=== PATIENT | female | born 1985 | race Caucasian/White ===

== ENCOUNTER 2019-10-28 10:21 | Day surgery (SDC) | payer OTHER, SELFPAY ==
[2019-10-24 11:51] LABS: BASOPHILS % (AUTO) 0.7 % (0.0-2.0); EOSINOPHILS # (AUTO) 0.2 K/uL (0.0-0.4); EOSINOPHILS % (AUTO) 3.4 % (0.0-4.0); HEMATOCRIT 40.6 % (36-48); HEMOGLOBIN 13.4 g/dL (12.0-16.0); LYMPHOCYTES # (AUTO) 2.1 K/uL (1.0-5.5); LYMPHOCYTES % (AUTO) 33.1 % (20.5-51.5); MEAN CORPUSCULAR HEMOGLOBIN 30 pg (27-31); MEAN CORPUSCULAR HGB CONC 33 % (32-36); MEAN CORPUSCULAR VOLUME 90 fL (79.0-98.0); MONOCYTES # (AUTO) 0.4 K/uL (0.0-1.0); MONOCYTES % (AUTO) 6.8 % (1.7-9.3); NEUTROPHILS # (AUTO) 3.6 K/uL (1.8-7.7); PLATELET COUNT (AUTO) 351 K/uL (130-430); RED BLOOD CELL COUNT(AUTO) 4.54 MIL/uL (4.2-6.2); RED CELL DISTRIBUTION WIDTH 12.6 % (9.0-15.0); WHITE BLOOD COUNT (AUTO) 6.4 K/uL (4.8-10.8)
[~2019-10-28] VITALS: Ht 160 cm; Wt 70.3 kg
[~2019-10-28 10:21] MED LIST: CEFAZOLIN SOD 2 GM in D5W 50 ML IV ONE
[2019-10-28] MEDS ORDERED: PROPOFOL 200MG/ 20ML VIAL (DIPRIVAN) IV ONE (12:15)
[2019-10-28] MEDS ORDERED: ONDANSETRON HCL 4 MG/2 ML VIAL IVP ONE (12:15)
[2019-10-28] MEDS ORDERED: SEVOFLURANE 15 MIN GAS INH ONE (12:15)
[2019-10-28] MEDS ORDERED: KETOROLAC TROMETHAMINE 30 MG VIAL IVP ONE (12:15)
[2019-10-28] MEDS ORDERED: MIDAZOLAM HCL 5 MG/5 ML VIAL IVP ONE (12:15)
[2019-10-28] MEDS ORDERED: NS IRRIG SOLN 1000 ML IR ONE (12:15)
[2019-10-28] MEDS ORDERED: MORPHINE SULFATE 10MG/10ML PF AMP EP ONE (12:15)
[2019-10-28] MEDS ORDERED: LR 1,000 ML IV.SOLN IV ONE (12:15)
[2019-10-28] MEDS ORDERED: NS IRRIG SOLN 5000 ML IR ONE (12:15)
[2019-10-28] MEDS ORDERED: fentaNYL CITRATE 250 MCG/5 ML AMP IV ONE (12:15)
[2019-10-28] MEDS ORDERED: BUPIVACAINE /EPINEPHRINE/PF 0.5% 30 ML VIAL INJ ONE (12:15)
[2019-10-28] MEDS ORDERED: DEXAMETHASONE SOD PHOSPHATE 4 MG/ML VIAL IVP ONE (12:15)
[2019-10-28] MEDS ORDERED: ONDANSETRON HCL 4 MG/2 ML VIAL IVP PRN (13:00)
[2019-10-28] MEDS ORDERED: MIDAZOLAM HCL 2 MG/2 ML VIAL (VERSED) IVP PRN (13:00)
[2019-10-28] MEDS ORDERED: HYDROmorphone 1 MG INJ. 1 MG/ML AMPUL IVP PRN ×2 (13:00)
[2019-10-28] MEDS ORDERED: MEPERIDINE HCL/PF 25 MG/ML DISP.SYRIN IVP PRN (13:00)
[2019-10-28] MEDS ORDERED: LR 1,000 ML IV SCH (13:00)
[2019-10-28] MEDS ORDERED: METOCLOPRAMIDE HCL 10 MG/2 ML VIAL IVP PRN (13:00)
[2019-10-28] MEDS ORDERED: NACL 0.9% 1,000 ML IV SCH (13:26)
[2019-10-28] MEDS ORDERED: HYDROcodone/ACETAMIN 5-325 MG TAB (NORCO/ VICODIN) PO PRN (13:30)
[2019-10-28] MEDS ORDERED: HYDROcodone/ACETAMIN 10-325 MG TAB PO PRN (13:30)
[2019-10-28] MEDS ORDERED: ACETAMINOPHEN 325 MG TABLET PO PRN (13:30)
[2019-10-28] MEDS ORDERED: MORPHINE 2 MG/ML INJ. SYRINGE IVP PRN (13:30)
[2019-10-28] MEDS ORDERED: DIPHENHYDRAMINE HCL 25 MG CAPSULE PO PRN (13:30)
[2019-10-28 14:37] VITALS: BP_SYST 104
== END 2019-10-28 15:20 | disposition home or self-care (01) ==
LOC: SDS 10:21 → SMU 10:23 → SDS 15:20
PROVIDERS: ATTEND Orthopaedic Surgery
DX: S83.242A Other tear of medial meniscus, current injury, left knee, initial encounter (principal); X58.XXXA Exposure to other specified factors, initial encounter; Y93.41 Activity, dancing; Y92.89 Other specified places as the place of occurrence of the external cause; Y99.8 Other external cause status; Z11.59 Encounter for screening for other viral diseases
CPT/HCPCS: 29881; 36415; 84703; 85025; J0690; J1100; J1885; J2250; J2274; J2405; J2704; J3010; J3490; J7060; J7120; U0003